=== PATIENT | male | born 1965 | race Two or more races ===

== ENCOUNTER → 2022-04-06 11:14 | Outpatient (CLI) | payer OTHER, SELFPAY ==
--- NOTE | ~2022-04-06 | XR_ITS ---
XR shoulder RT min 2V DATE: 04/06/2022 11:29 INDICATION: Right shoulder pain TECHNIQUE: 4 views COMPARISON: None FINDINGS: No fracture or dislocation, periosteal reaction or bone destruction. No abnormal soft tiss ue calcification. IMPRESSION: No significant abnormality Reviewed, dictated and finalized at location B. IMPRESSION: No significant abnormality
== END ==
PROVIDERS: PCP Family Medicine; Visit Provider Family Medicine
DX: M25.511 Pain in right shoulder (principal)
CPT/HCPCS: 73030

== ENCOUNTER → 2022-05-18 10:42 | Outpatient (CLI) | payer OTHER, SELFPAY ==
--- NOTE | ~2022-05-18 | MR_ITS ---
EXAMINATION: MR shoulder RT wo con DATE: 05/18/2022 11:29 INDICATION: Right shoulder pain. Right rotator cuff tear. TECHNIQUE: Magnetic resonance imaging (MRI) of the right shoulder was performed without intravenous c ontrast. Sequences included axial PD-weighted FS FSE, coronal oblique PD-weighted FS FSE, coronal obl ique T2-weighted FS FSE, sagittal PD-weighted FS FSE, and sagittal T1-weighted SE. COMPARISON: None. FINDINGS: Coracoacromial arch: The acromion undersurface is curved in morphology (type II). There are small to moderate-sized anteri or and lateral subacromial spurs at the acromial insertion of the normal coracoacromial ligament. Mil d acromioclavicular osteoarthritis. Rotator cuff: Mild supraspinatus and infraspinatus tendinopathy with partial-thickness articular sided tear involvi ng up to two thirds of the tendon thickness which extends 2 cm AP along the greater tuberosity footpl ate of the supraspinatus and conjoined posterior supraspinatus and anterior infraspinatus tendons. Th e articular side of the tendons remain intact. The teres minor tendon is normal. Mild subscapularis t endinopathy without tear. Normal rotator cuff muscle bulk and signal. Biceps tendon, glenoid labrum and glenohumeral cartilage: Long head of the biceps tendon is normal. There is a superior, anterior to posterior tear of the radha oid labrum (SLAP tear) descending from the 1:00 position anteriorly to the 10:30 position posteriorly . Small marginal osteophytes along the posterior glenoid which partially replaces the now diminutive posterior labrum which appears to demonstrate some fraying along the margins of the labrum consistent with likely chronic labral degeneration. Glenohumeral cartilage is normal. Fluid: Small glenohumeral joint effusion with proportional extension of small amount fluid along the long he ad biceps tendon sheath. No loose osteochondral bodies. Small amount of fluid in the subacromial/subd eltoid bursa consistent with mild bursitis. Bones: Normal marrow signal with no edema, fracture or abnormal marrow replacing process. Mild hypertrophic change at the junction of the superior and middle facets of the greater tuberosity along the rotator cuff tear defect. IMPRESSION: 1. Mild supraspinatus and infraspinatus tendinopathy with deep partial-thickness bursal sided tear of the supraspinatus and conjoined portion of the tendons. This could be secondary to a small to modera te subacromial spur and internal impingement. 2. 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 3. Mild subacromial/subdeltoid bursitis. Reviewed, dictated and finalized at location B. IMPRESSION: 1. Mild supraspinatus and infraspinatus tendinopathy with deep partial-thicknes s bursal sided tear of the supraspinatus and conjoined portion of the tendons. This could be secondary to a small to moderate subacromial spur and internal im pingement. 2. 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 3. Mild subacromial/subdeltoid bursitis.
== END ==
PROVIDERS: PCP Family Medicine; Visit Provider Family Medicine
DX: S43.431A Superior glenoid labrum lesion of right shoulder, initial encounter (principal); X58.XXXA Exposure to other specified factors, initial encounter; M75.51 Bursitis of right shoulder
CPT/HCPCS: 73221

== ENCOUNTER 2023-05-19 09:38 | Emergency (ER) | payer OTHER, SELFPAY ==
[2023-05-19] VITALS (15 sets, daily range): BP systolic 149–154; BP diastolic 88–99; PULSE 64–78; RESP 14–25; TEMP 36.4; O2SAT 97–99
--- NOTE | ~2023-05-19 | XR_ITS ---
EXAMINATION: XR chest 2V 05/19/2023 10:54 INDICATION: Syncope. PROCEDURE: 2 view chest COMPARISON: No prior studies for comparison. FINDINGS: Bibasilar atelectasis. No focal pneumonia. The cardiomediastinal silhouette is within pema l limits. There are no pleural effusions. There is no pneumothorax suspected. Shallow inspiration with crowding of the pulmonary vessels. IMPRESSION: 1: Bibasilar atelectasis. Reviewed, dictated and finalized at location B. IMPRESSION: 1: Bibasilar atelectasis.
--- NOTE | 2023-05-19 09:43 | ECG_ITS ---
Measurements Intervals [place] Rate: 64 P: 35 [place]: 155 QRS: -5 QRSD: 89 T: 12 QT: 381 QTc: 395 Interpretive Statements SINUS RHYTHM NORMAL ECG NO PREVIOUS ECG AVAILABLE FOR COMPARISON Electronically Signed On 05-19-2023 10:25:45 CDT by Piyush Rowe D.O.
[2023-05-19 10:14] LABS: Basophils Percent Auto 0.3 % (0.2-1.2); Eosinophils Absolute Auto 0.2 K/mm3 (0-0.3); Eosinophils Percent Auto 1.5 % (0-4.4); Hematocrit 38.9 % (42.0-52.0); Hemoglobin 12.7 g/dL (14.0-18.0); Immature Granulocyte Absolute 0.02 K/mm3 (0.00-0.031); Immature Granulocyte Percent A 0.2 % (0-0.5); Lymphocytes Absolute Auto 4.14 K/mm3 (0.9-3.2); Lymphocytes Percent Auto 40.5 % (18.3-44.2); Mean Corpuscular HGB Conc 32.6 g/dl (32-36); Mean Corpuscular Hemoglobin 30.3 pg (26-34); Mean Corpuscular Volume 92.8 fl (80-100); Mean Platelet Volume 9.4 fl (7.4-10.4); Monocytes Absolute Auto 0.6 K/mm3 (0.1-0.6); Monocytes Percent Auto 5.6 % (2.6-8.5); Neutrophils Absolute Auto 5.3 K/mm3 (1.3-6.7); Neutrophils Percent Auto 51.9 % (45.5-73.1); Platelet Count Result 192 k/mm3 (150-375); Red Blood Count 4.19 M/mm3 (4.6-6.20); Red Cell Distribution Width 13.9 % (11.5-14.5); White Blood Count 10.2 K/mm3 (4.5-10.0)
[2023-05-19 10:26] LABS: Alanine Aminotransferase 38 U/L (6-50); Albumin Level 3.5 g/dL (3.5-5.1); Alkaline Phosphatase 46 U/L (38-126); Anion Gap 5 mmol/L (8-16); Aspartate Amino Transferase 31 U/L (17-59); Bilirubin,Total 0.5 mg/dL (0.2-1.3); Blood Urea Nitrogen 15 mg/dL (9-20); Calcium 8.6 mg/dL (8.4-10.2); Carbon Dioxide 27 mmol/L (22-30); Chloride 107 mmol/L (98-107); Estimated CRCL calculation 68 ml/min; Estimated Glomerular Filt Rate > 60; Glucose 99 mg/dL (65-110); Potassium 3.8 mmol/L (3.4-5.0); Sodium 139 mmol/L (137-145)
[2023-05-19 10:34] LABS: Magnesium 1.7 mg/dL (1.6-2.3)
[2023-05-19] MEDS: SODIUM CHLORIDE 0.9% IV 1,000 ML 999 ML IV CONT (10:57)
--- NOTE | 2023-05-19 11:00 | PC.NURSE ---
Ice pack given to pt for R shoulder pain.
--- NOTE | 2023-05-19 11:10 | PC.NURSE ---
Pt received 1 L of NS from EMS and L 2 was started
[2023-05-19 11:19] LABS: D Dimer 0.33 ug/mL (<0.48)
--- NOTE | 2023-05-19 12:47 | ED.SYNCOPE ---
HPI - Syncope General Chief Complaint: Syncope Stated Complaint: syncopal episode Time Seen by Provider: 05/19/23 10:08 History of Present Illness HPI narrative: This is a 57-year-old male, presented emergency department after syncopal episode. The patient states he was in his usual state of health, when he moved his right shoulder, felt significant pain, became lightheaded and lost consciousness. He states he recently had right shoulder repair. He states his this is the third time he has had a similar episode involving pain and a loss of consciousness. He denies chest pain, shortness of breath, palpitations or other recent changes in his health. Related Data Allergies Allergy/AdvReac Type Severity Reaction Status Date / Time Penicillins Allergy Unknown HIVES Verified 05/19/23 09:44 Review of Systems Review of Systems: CONSTITUTIONAL: Denies fever, chills, or sweats. CARDIOVASCULAR: Denies chest pain, palpitations, or edema. RESPIRATORY: Denies cough or dyspnea. GASTROINTESTINAL: Denies abdominal pain, nausea, vomiting, or diarrhea. GENITOURINARY: Denies dysuria or hematuria. SKIN: Denies rash or itching. MUSCULOSKELETAL: Right shoulder pain denies back pain, or myalgia. NEUROLOGIC: Denies headache, numbness, dizziness, or weakness. PSYCHIATRIC: Denies anxiety or depression. PMFSH Past Medical History Medical History (Updated 05/19/23 @ 12:52 by Rafael Curran MD) No significant past medical history Surgical History Surgical History (Updated 05/19/23 @ 12:48 by Rafael Curran MD) History of arthroplasty of right shoulder Social History Social History (Updated 05/19/23 @ 12:48 by Rafael Curran MD) Smoking status: Never smoker Alcohol intake: current Drinks per week: 1 Substance use: never Exam Narrative: GENERAL: Well-developed, well-nourished, and in no acute distress. HEAD: Normocephalic, atraumatic. EYES: PERRLA and EOMI. ENT: Nares clear, no rhinorrhea or epistaxis. Mucous membranes moist. Oropharynx without tonsillar hypertrophy exudate or other lesions. CHEST: Clear to auscultation. No respiratory distress. No wheezes rales or rhonchi HEART: Regular rate and rhythm. No murmur heard. Normal peripheral pulses. ABDOMEN: Soft, nontender, nondistended, normal active bowel sounds. EXTREMITIES: Tender palpation over the right anterior shoulder. Bandages are clean dry and intact. Range of motion of the left arm intact. Range of motion of the right arm limited by pain. Normal range of motion of all other limbs. No edema. SKIN: Warm, dry, no rash. NEURO: Alert and oriented x3. Moving all 4 limbs purposefully. PSYCH: Normal mood and affect. Course Course Emergency Course: 12:49 - EKG not concerning for arrhythmia or ischemia. Chemistries not concerning for liver or kidney injury. CBC demonstrates slightly elevated white blood cell count of 10.2 and hemoglobin of 12.7 with baseline of 14 as of 4 years ago. D-dimer negative. Chest x-ray not concerning for acute cardiopulmonary process. I suspect the patient's syncopal episode is vasovagal in nature. The patient was given IV fluids and ambulated without difficulty. Will discharge with recommendation for primary care follow-up and potential cardiology consultation. Discussed return and emergency precautions including signs/symptoms of ACS and respiratory distress. The patient voiced understanding and is comfortable with the plan. All questions answered to his satisfaction Vital Signs Vital signs: Vital Signs Temperature 97.6 F 05/19/23 09:33 Pulse Rate 72 05/19/23 09:33 Respiratory Rate 18 05/19/23 09:33 Blood Pressure 153/88 H 05/19/23 09:33 Pulse Oximetry 98 05/19/23 09:33 Oxygen Delivery Room Air 05/19/23 09:33 Temperature 97.6 F 05/19/23 09:33 Pulse Rate 72 05/19/23 12:15 Respiratory Rate 14 05/19/23 12:15 Blood Pressure 149/99 H 05/19/23 11:31 Pulse Oximetry 98 05/19/23
[2023-05-19] MEDS: ACETAMINOPHEN 500 MG TABLET 1000 MG PO (13:12)
== END 2023-05-19 13:14 | disposition home or self-care (01) ==
PROVIDERS: Emergency Provider Preventive Medicine Aerospace Medicine; PCP Family Medicine
DX: R55 Syncope and collapse (principal); Z96.611 Presence of right artificial shoulder joint
CPT/HCPCS: 36415; 71046; 80053; 83735; 85025; 85380; 93005; 99284; A9270; J7030

== ENCOUNTER 2023-10-13 05:53 | Day surgery (SDC) | payer OTHER, SELFPAY ==
[2023-09-09 13:55] VITALS: BMI 28.3
[2023-10-13 06:46] VITALS: BP 113/76; PULSE 79; RESP 18; TEMP 36.3; O2SAT 100
[2023-10-13 07:01] LABS: Glucose Point of Care 91 mg/dl (65-105)
--- NOTE | 2023-10-13 07:07 | PM.HPGS ---
History of Present Illness History of Present Illness Consent: Risks, benefits, and alternatives have been discussed and questions answered. Patient agrees to proceed with procedure. Chief complaint: Neoplasm Screening Narrative: Douglas Lares is a 58 year old male presents for screening colonoscopy. Patient's current weight appetite and bowel movements are normal. Patient denies abdominal pain. He has had no bleeding. Family history is noncontributory. Review of Systems Review of Systems: Review of systems is noncontributory. [facility] Past Medical History Medical History (Updated 10/13/23 @ 07:09 by Duane Calabrese MD) No significant past medical history Surgical History Surgical History (Updated 05/19/23 @ 12:48 by Rafael Curran MD) History of arthroplasty of right shoulder Social History Social History (Updated 05/19/23 @ 12:48 by Rafael Curran MD) Smoking status: Former smoker Alcohol intake: current Drinks per week: 1 Alcohol use details: rarely Substance use: never Living arrangements: with family Meds Home Medications and Allergies Home Medications Medication Instructions Recorded Confirmed Type atorvastatin 20 mg tablet 20 mg PO HS 09/27/23 10/13/23 History tirzepatide 10 mg/0.5 mL 10 mg subcut DIRECTED 09/27/23 10/13/23 History subcutaneous pen injector (Mounjaro) Allergies Allergy/AdvReac Type Severity Reaction Status Date / Time Penicillins Allergy Unknown HIVES Verified 10/13/23 06:45 Vital Signs Vital Signs - 24 hr 10/13/23 06:46 Temperature 97.4 F L Pulse Rate 79 Respiratory Rate 18 Blood Pressure 113/76 Pulse Oximetry 100 Oxygen Delivery Room Air Exam Narrative: Physical exam reveals patient to be alert. Vital signs stable. HEENT exam is unremarkable. Patient is anicteric. Lungs are clear to auscultation and percussion is without murmur or extra sounds. Abdomen bowel sounds are present soft nontender with no organomegaly. Digital and external rectal exam is normal. Assessment and Plan Assessment and plan (1) Encounter for screening colonoscopy: Code(s): Z12.11 - Encounter for screening for malignant neoplasm of colon Status: Acute Assessment and Plan: Patient presents for screening colonoscopy. He appears to be at average risk for colon polyps.
--- NOTE | 2023-10-13 07:14 | P.PNAN_ITS ---
Anes - Initial Pre Proc Eval Procedure: Operation Date: 10/13/23 08:00 Proposed Procedures p Screening Colonoscopy - Duane Calabrese MD Date/Time: 10/13/23 07:14 Surgeon: Duane Calabrese MD Pre Op Diagnosis: Neoplasm Screening Patient Data Age: 58 Gender: M Height: 1.65 m Weight: 77.05 kg Last Vital Signs Temp 36.3 C L 10/13/23 06:46 Pulse 79 10/13/23 06:46 Resp 18 10/13/23 06:46 BP 113/76 10/13/23 06:46 Pulse Ox 100 10/13/23 06:46 O2 Del Method Room Air 10/13/23 06:46 Allergies Allergy/AdvReac Type Severity Reaction Status Date / Time Penicillins Allergy Unknown HIVES Verified 10/13/23 06:45 Home Medications Medication Instructions Recorded Confirmed Type atorvastatin 20 mg tablet 20 mg PO HS 09/27/23 10/13/23 History tirzepatide 10 mg/0.5 mL 10 mg subcut DIRECTED 09/27/23 10/13/23 History subcutaneous pen injector (Mounjaro) Laboratory Tests 10/13/23 06:59 POC Capillary Glucose 91 mg/dl (65-105) Patient hx anesthesia problems: other (post procedure syncope) Family hx anesthesia problems: none Results Review: All pre-operative results and documents have been reviewed as part of the pre- operative evaluation. [facility] Past Medical History Medical History No significant past medical history Surgical History Surgical History History of arthroplasty of right shoulder Social History Social History Smoking status: Former smoker Alcohol intake: current Drinks per week: 1 Alcohol use details: rarely Substance use: never Living arrangements: with family Anes - Eval Final PreProcedure Day of Procedure 10/13/23 07:14 Patient weight: overweight Heart: regular rate and rhythm Lungs: clear to auscultation Airway: Mallampati scale class II Neurological: alert and oriented Last oral intake: >/= 8 hours ASA classification: II Emergent: no Anesthetic plan: proceed Anesthesia type and monitoring: general GIVS and standard monitoring Results Review: All pre-operative results and documents have been reviewed as part of the pre- operative evaluation. Informed Consent: The patient's anesthetic plan and its attendant risks and benefits were discussed with the patient/family/POA. Questions were solicited and answers provided to the satisfaction of the patient/family/POA.
[2023-10-13] MEDS: LACTATED RINGERS 1,000 ML 150 ML IV CONT (07:15)
[2023-10-13 08:09] VITALS: BP 99/77; PULSE 86; RESP 16; O2SAT 100
[2023-10-13 08:19] VITALS: BP 108/81; PULSE 76; RESP 16; O2SAT 100
[2023-10-13 08:29] VITALS: BP 106/78; PULSE 75; RESP 16; O2SAT 100
--- NOTE | 2023-10-13 08:47 | WPDANESPN ---
Anes - Prog Note Post-Op Date/Time: 10/13/23 08:47 Cardiovascular status: normal Respiratory status: normal Airway patency: baseline Mental status: baseline Post-Op hydration status: normal Vital Signs: Last Vital Signs Temp 36.3 C L 10/13/23 06:46 Pulse 75 10/13/23 08:29 Resp 16 10/13/23 08:29 BP 106/78 10/13/23 08:29 Pulse Ox 100 10/13/23 08:29 O2 Del Method Room Air 10/13/23 08:29 Pain Score (VAS): 0 I/O: Intake & Output 10/12/23 10/13/23 10/13/23 23:59 07:59 15:59 Intake Total 400 Balance 400 10/13/23 06:59 POC Capillary Glucose 91 Patient Feedback: Patient satisfied with anesthetic care.
== END 2023-10-13 08:41 | disposition home or self-care (01) ==
PROVIDERS: PCP Family Medicine; Visit Provider Internal Medicine Gastroenterology
PROC: 0DJD8ZZ Inspection of Lower Intestinal Tract, Via Natural or Artificial Opening Endoscopic (ICD-10-PCS; CPT 45378; principal; 2023-10-13 08:00)
DX: Z12.11 Encounter for screening for malignant neoplasm of colon (principal); D12.5 Benign neoplasm of sigmoid colon; D12.8 Benign neoplasm of rectum
CPT/HCPCS: 45385

== ENCOUNTER 2023-10-13 07:00 | Outpatient (NON) | payer OTHER, SELFPAY | END 2023-10-13 07:01 | disposition home or self-care (01) | PROVIDERS: PCP Family Medicine; Visit Provider Internal Medicine Gastroenterology | DX: Z12.11 Encounter for screening for malignant neoplasm of colon (principal) | CPT/HCPCS: 88305 ==